=== PATIENT | male | born 1950 | race Caucasian/White ===

== ENCOUNTER 2016-12-07 08:29 | Emergency (ER) | payer MEDICARE, BC ==
[2016-12-07 08:42] VITALS: RESP 18; TEMP 97
[2016-12-07 11:13] VITALS: BP 132/82; PULSE 81; O2SAT 97
== END 2016-12-07 09:25 | disposition home or self-care (01) | DRG 151 ==
LOC: ED 08:29
DX: R04.0 Epistaxis (principal)
CPT/HCPCS: 99282